=== PATIENT | female | born 1970 | race Two or more races ===

== ENCOUNTER 2022-09-30 18:43 | Emergency (ER) | payer OTHER ==
[2022-09-30 18:48] VITALS: BP 122/79; PULSE 82; RESP 18; TEMP 97; BMI 30.4
== END 2022-09-30 22:00 | disposition home or self-care (01) ==
LOC: JERFT 18:43
DX: S60.931A Unspecified superficial injury of right thumb, initial encounter (principal)
CPT/HCPCS: 73140-TC-RT-FY; 99284-25

== ENCOUNTER 2023-06-21 04:32 | Day surgery (SDC) | payer OTHER ==
[2023-06-15 16:13] VITALS: BMI 30.5
[~2023-06-21 04:32] MED LIST: ACETAMINOPHEN 325 MG TABLET (FP) PO PRN; TRIAMCINOLONE ACET 40MG/1ML VIAL IJ ONE
[2023-06-21] MEDS ORDERED: OFLOXACIN 0.3% OPHTHALMIC SOLUTION 5 ML BOTTLE ONE (09:02)
[2023-06-21] MEDS: OFLOXACIN 0.3% OPHTHALMIC SOLUTION 5 ML BOTTLE OP SCH ×3 (09:05→09:15)
[2023-06-21 09:17] VITALS: RESP 20
[2023-06-21] MEDS ORDERED: MIDAZOLAM HCL 2 MG/2 ML SINGLE DOSE VIAL ONE (10:54)
[2023-06-21] MEDS ORDERED: POVIDONE-IODINE 5% OPHTHALMIC PREP 30 ML SOLUTION OD ONE (11:10)
[2023-06-21] MEDS ORDERED: LIDOCAINE 1%/EPI 1:100000 (50 ML MULTI DOSE VIAL) INF ONE ×2 (11:14)
[2023-06-21] MEDS ORDERED: TRIAMCINOLONE ACET 40MG/1ML VIAL IJ ONE ×2 (11:20→11:41)
[2023-06-21] MEDS ORDERED: ACETAMINOPHEN 325 MG TABLET (FP) ONE (12:04)
[2023-06-21 12:22] VITALS: TEMP 98.5
[2023-06-21 12:25] VITALS: BP 123/65; PULSE 70
[2023-06-21] MEDS ORDERED: OPTHALMIC OD SCH (13:30)
[2023-06-21] MEDS ORDERED: LIDOCAINE 3.5% OD SCH (13:30)
== END 2023-06-21 12:20 | disposition home or self-care (01) ==
LOC: JASU-SURG 04:32
PROVIDERS: ATTEND Ophthalmology
PROC: 08U007Z Supplement of Right Eye with Autologous Tissue Substitute, Open Approach (ICD-10-PCS; principal; 2023-06-21 11:00)
DX: H11.001 Unspecified pterygium of right eye (principal)